=== PATIENT | female | born 1980 | race Caucasian/White ===

== ENCOUNTER 2023-04-17 16:10 | Emergency (ER) | payer BC ==
[~2023-04-17] VITALS: Ht 167.6 cm; Wt 136.1 kg
[2023-04-17] MEDS ORDERED: ONDA4 PO (19:11)
[2023-04-17] MEDS ORDERED: Percocet 5-3251 EACH PO (19:11)
[2023-04-17 19:20] VITALS: BP 110/83
== END 2023-04-17 20:08 | disposition home or self-care (01) ==
LOC: ER 16:10
DX: S82.832A Other fracture of upper and lower end of left fibula, initial encounter for closed fracture (principal); S82.892A Other fracture of left lower leg, initial encounter for closed fracture; F17.210 Nicotine dependence, cigarettes, uncomplicated; X50.1XXA Overexertion from prolonged static or awkward postures, initial encounter; Y93.51 Activity, roller skating (inline) and skateboarding; Z91.048 Other nonmedicinal substance allergy status
CPT/HCPCS: 27788; 73600; 73610; 76000; 96374; 96375; 99152; 99283-25; A9270; J1170; J2405; J2704; J7030

== ENCOUNTER 2023-04-20 12:17 | Day surgery (SDC) | payer BC ==
[~2023-04-20] VITALS: Ht 160 cm; Wt 118.0 kg
[~2023-04-20 12:17] MED LIST: ONDA4 PO; Percocet 5-3251 EACH PO
[2023-04-20] MEDS ORDERED: AMIT75 PO (13:03)
[2023-04-20] MEDS ORDERED: Celexa20 MG PO (13:04)
[2023-04-20] MEDS ORDERED: UBRELVY50 MG PO (13:04)
[2023-04-20] MEDS ORDERED: LORA2 PO (13:04)
[2023-04-20] MEDS ORDERED: MECL25 (13:05)
--- NOTE | 2023-04-20 14:38 | NUR ---
04/20/23 1438 Kimber Bravo BLISTER NOTED ON MEDIAL SIDE OF LEFT ANKLE DURING PREP, BRUISING NOTED ON LEFT ANKLE AREA WELL BY RN AND DR HARRIS. 40ML OF ROPIVACAINE 0.5% MIXED AND VERIFIED WITH 0.2ML OF EPI (1MG/ML) TO MAKE ROPIVACAINE 0.5% WITH EPI 1:200,000 FOR INJECTION AT THE OPSITE BY DR HARRIS.
[2023-04-20 17:49] VITALS: BP 114/76
== END 2023-04-20 17:54 | disposition home or self-care (01) ==
LOC: ORSCSDS 12:17
PROVIDERS: Podiatrist Foot & Ankle Surgery
PROC: 0QSK04Z Reposition Left Fibula with Internal Fixation Device, Open Approach (ICD-10-PCS; principal; 2023-04-20 13:30)
PROC: 0SSG04Z Reposition Left Ankle Joint with Internal Fixation Device, Open Approach (ICD-10-PCS; principal; 2023-04-20 13:30)
PROC: 0MQR0ZZ Repair Left Ankle Bursa and Ligament, Open Approach (ICD-10-PCS; principal; 2023-04-20 13:30)
DX: S82.62XA Displaced fracture of lateral malleolus of left fibula, initial encounter for closed fracture (principal); S93.422A Sprain of deltoid ligament of left ankle, initial encounter; S93.432A Sprain of tibiofibular ligament of left ankle, initial encounter; X58.XXXA Exposure to other specified factors, initial encounter; F41.9 Anxiety disorder, unspecified; E66.01 Morbid (severe) obesity due to excess calories; Z68.42 Body mass index [BMI] 45.0-49.9, adult; F17.210 Nicotine dependence, cigarettes, uncomplicated
CPT/HCPCS: C1713; C1776; J0171; J0690; J2250; J2270; J2704; J2765; J2795; J3010; J7120

== ENCOUNTER → 2023-12-22 | Outpatient (CLI) | payer OTHER ==
[~2023-12-22] MED LIST changes: +AMIT75 PO; +Celexa20 MG PO; +LORA2 PO; +MECL25; +UBRELVY50 MG PO
== END ==
LOC: LAB SHORT 08:15 → LAB 08:15
DX: J02.9 Acute pharyngitis, unspecified (principal)
CPT/HCPCS: 87081; 87147

== ENCOUNTER → 2025-04-29 | Outpatient (CLI) | payer OTHER ==
[2025-04-29 13:10] LABS: Hematocrit 34.8 % (33.0-51.0); Hemoglobin 10.6 g/dL (11.5-16.0); Mean Corpuscular HGB Conc 30.5 g/dL (31.5-36.5); Mean Corpuscular Volume 81 fL (80-100); NRBC ABSOLUTE 0.00 K/mm3 (0.00-0.02); NRBC Auto 0.0 /100 WBC (0.0-0.2); Platelet Count 273 K/mm3 (150-400); RDW Coefficient Variation 15.2 % (11.7-14.2); RDW Standard Deviation 45.2 fL (35.1-46.3)
[2025-04-29 13:27] LABS: Alanine Aminotransfer (ALT/SGP 21.0 U/L (12-78); Albumin, Blood 3.6 g/dL (3.4-5.0); Albumin/Globulin Ratio 0.9 (0.8-1.8); Anion Gap 6.0 mmol/L (3-11); Aspartate Aminotrans (AST/SGOT 12.0 U/L (12-37); Bilirubin, Total 0.6 mg/dL (0.1-1.0); Blood Urea Nitrogen 9.0 mg/dL (8-24); CO2, Blood 27.0 mmol/L (21-32); Calcium, Blood 9.1 mg/dL (8.5-10.1); Chloride, Blood 106.0 mmol/L (98-108); Creatinine, Blood 0.57 mg/dL (0.40-1.00); Globulin, Blood 4.1 g/dL (2.2-4.0); Glucose, Blood 90.0 mg/dL (70-99); Potassium, Blood 3.9 mmol/L (3.5-5.5); Sodium, Blood 135.0 mmol/L (136-145); Total Protein, Blood 7.7 g/dL (6.4-8.2)
[2025-04-29 15:01] LABS: BASOPHILS ABSOLUTE MAN 0.12 K/mm3 (0.00-0.23); BASOPHILS PERCENT MAN 2 % (0-2); EOSINOPHILS ABSOLUTE MAN 0.38 K/mm3 (0.00-0.68); EOSINOPHILS PERCENT MAN 6 % (0-6); LYMPHOCYTES ABSOLUTE MAN 1.97 K/mm3 (0.84-5.20); LYMPHOCYTES PERCENT MAN 31 % (21-46); MONOCYTES ABSOLUTE MAN 0.31 K/mm3 (0.16-1.47); MONOCYTES PERCENT MAN 5 % (4-13); NEUTROPHILS ABSOLUTE MAN 3.57 K/mm3 (1.96-9.15); SEG NEUTROPHILS PERCENT MAN 56 % (41-73)
== END | disposition home or self-care (01) ==
LOC: LAB SHORT 12:44 → LAB 12:44
PROVIDERS: Nurse Practitioner
DX: R10.10 Upper abdominal pain, unspecified (principal)
CPT/HCPCS: 80053; 83690; 85007; 85027